=== PATIENT | female | born 1960 | race Caucasian/White ===

== ENCOUNTER → 2016-05-20 | Outpatient (CLI) | payer OTHER ==
--- NOTE | 2016-05-20 10:19 | MM ---
Reason for exam: screening (asymptomatic). Last mammogram was performed 1 year and 6 months ago. History: Patient is postmenopausal, has history of other cancer at age 49, and is nulliparous. Family history of breast cancer in mother at age 65. Benign US breast aspiration single RT of the right breast, November 05, 2013. Physical Findings: A clinical breast exam by your physician is recommended on an annual basis and results should be correlated with mammographic findings. MG Screening Mammo w CAD Bilateral CC and MLO view(s) were taken. Prior study comparison: November 06, 2014, bilateral MG screening mammo w CAD. May 06, 2014, right breast MG diagnostic mammo RT w CAD. The breast tissue is heterogeneously dense. This may lower the sensitivity of mammography. Previous ultrasound biopsy in the right breast. No significant changes when compared with prior studies. ASSESSMENT: Benign, BI-RAD 2 RECOMMENDATION: Routine screening mammogram of both breasts in 1 year.
== END | disposition home or self-care (01) ==
LOC: RADMAMWWP 07:34
PROVIDERS: ATTEND Family Medicine
DX: Z12.31 Encounter for screening mammogram for malignant neoplasm of breast (principal)

== ENCOUNTER → 2017-03-17 | Outpatient (CLI) | payer OTHER ==
--- NOTE | 2017-03-17 09:27 | XR ---
EXAM TYPE: LUMBAR SPINE X RAY SERIES COMPARISON: NONE HISTORY: Back pain TECHNIQUE: 3 views views are submitted. FINDINGS: Alignment is anatomic. The pedicles are intact. The transverse processes are intact. There is no s pondylolisthesis. Hypertrophic changes are noted anteriorly and there is facet arthropathy particula rly at L4-5 and L5-S1. Disc spaces are preserved. IMPRESSION: 1. Multilevel facet arthropathy and hypertrophic changes.
== END | disposition home or self-care (01) ==
LOC: RADXRMAIN 08:40
PROVIDERS: ATTEND Physician Assistant
DX: M46.97 Unspecified inflammatory spondylopathy, lumbosacral region (principal)
CPT/HCPCS: 72100

== ENCOUNTER → 2018-05-31 | Outpatient (CLI) | payer OTHER ==
[2018-05-31 08:02] LABS: Basophils # (A) 0.1 k/uL (0-0.2); Basophils % (A) 1 %; Eosinophils # (A) 0.3 k/uL (0-0.7); Eosinophils % (A) 4 %; HGB 13.7 gm/dL (11.4-16.0); Lymphocytes # (A) 1.8 k/uL (1.0-4.8); Lymphocytes % (A) 25 %; MCH 28.1 pg (25.0-35.0); MCHC 31.8 g/dL (31.0-37.0); MCV 88.3 fL (80.0-100.0); Mean Platelet Volume 7.1; Monocytes # (A) 0.4 k/uL (0-1.0); Monocytes % (A) 6 %; Neutrophils # (A) 4.6 k/uL (1.3-7.7); Neutrophils % (A) 63 %; Platelet Count 300 k/uL (150-450); RBC 4.86 m/uL (3.80-5.40); RDW 13.7 % (11.5-15.5); WBC 7.2 k/uL (3.8-10.6)
[2018-05-31 08:10] LABS: ALT 46 U/L (9-52); AST 31 U/L (14-36); Albumin 4.2 g/dL (3.5-5.0); Alkaline Phosphatase 78 U/L (38-126); Anion Gap 5 mmol/L; Blood Urea Nitrogen 16 mg/dL (7-17); Calcium 9.3 mg/dL (8.4-10.2); Carbon Dioxide 27 mmol/L (22-30); Chloride 106 mmol/L (98-107); Cholesterol 233 mg/dL (<200); Glucose 92 mg/dL (74-99); HDL Cholesterol 76 mg/dL (40-60); LDL Cholesterol,Calculated 143 mg/dL (0-99); Potassium 4.3 mmol/L (3.5-5.1); Sodium 138 mmol/L (137-145); Total Bilirubin 0.5 mg/dL (0.2-1.3); Total Protein 7.1 g/dL (6.3-8.2); Triglycerides 69 mg/dL (<150)
--- NOTE | 2018-06-01 11:15 | MM ---
Reason for exam: screening (asymptomatic). Last mammogram was performed 2 years ago. History: Patient is postmenopausal, has history of other cancer at age 49, and is nulliparous. Family history of breast cancer in mother at age 65. Benign US breast aspiration single RT of the right breast, November 05, 2013. Physical Findings: A clinical breast exam by your physician is recommended on an annual basis and results should be correlated with mammographic findings. MG Screening Mammo w CAD Bilateral CC and MLO view(s) were taken. Prior study comparison: May 20, 2016, bilateral MG screening mammo w CAD. November 06, 2014, bilateral MG screening mammo w CAD. The breast tissue is heterogeneously dense. This may lower the sensitivity of mammography. No significant changes when compared with prior studies. ASSESSMENT: Benign, BI-RAD 2 RECOMMENDATION: Routine screening mammogram of both breasts in 1 year.
== END | disposition home or self-care (01) ==
LOC: RADMAMWWP 07:15
PROVIDERS: ATTEND Family Medicine
DX: Z12.31 Encounter for screening mammogram for malignant neoplasm of breast (principal); Z00.00 Encounter for general adult medical examination without abnormal findings
CPT/HCPCS: 36415; 77067; 80053; 80061; 85025

== ENCOUNTER 2021-08-17 06:15 | Day surgery (SDC) | payer BC ==
[2021-08-13 15:22] VITALS: BMI 32.5
[~2021-08-17 06:15] MED LIST: LACTATED RINGERS 1,000 ML IV SCH; LIDOCAINE 1% (10MG/ML) FOR IV START INTRADERMA PRN
[2021-08-17 07:01] VITALS: TEMP 97.1
[2021-08-17] MEDS ORDERED: PROPOFOL 10 MG/ML 20 ML VIAL IV ONE (07:25)
[2021-08-17] MEDS ORDERED: LIDOCAINE 2% INJ 20 MG/ML (2 ML VIAL) ONE (07:25)
--- NOTE | 2021-08-17 07:50 | P.PCN ---
Date of Procedure: 08/17/21 Procedure(s) Performed: Brief history: Patient is a pleasant 60-year-old white female scheduled for an elective upper endoscopy as well as colonoscopy as a part of evaluation of GERD and screening for colon cancer. She is been having intermittent dysphagia to solids for the last 1 month duration. Procedure performed: Esophagogastroduodenoscopy with biopsy Colonoscopy with biopsy Preoperative diagnosis: GERD/intermittent dysphagia to solids Screening for colon cancer Anesthesia: MAC Procedure: After informed consent was obtained from the patient was brought into the endoscopy unit and IV sedation was administered by anesthesia under continuous monitoring. Initially upper endoscopy was done. The Olympus GF 160 video endoscope was inserted inserted into the mouth and esophagus intubated without any difficulty and was gradually advanced into the stomach and duodenum and carefully examined. The bulb and second part of the duodenum appeared normal. The scope was then withdrawn into the stomach adequately insufflated with air and upon careful examination the antrum had scattered erosions consistent with gastritis and biopsies were done from this area. The body, cardia and fundus appeared normal. The scope was then withdrawn into the esophagus. The GE junction was located at 40 cm to the incisors. It appeared regular with no erythema erosions or ulcerations. Rest of the esophagus appeared normal. Patient tolerated the procedure well. At this time the patient continued to remain sedation. Initial digital rectal examination was normal. Olympus CF 160 video colonoscope was then inserted into the rectum and gradually advanced to the cecum without any difficulty. Careful examination was performed as the scope was gradually being withdrawn. The prep was excellent. The cecum, ascending colon, transverse colon, descending colon, appeared normal. In the sigmoid colon there was a 3 mm polyp removed by cold biopsy. Rest of the sigmoid colon and rectum appeared normal. Retroflexion was performed in the rectum and no lesions were noted. Patient tolerated the proced ure well. Impression: 1. Upper endoscopy revealed esophagitis with linear ulcerations and erosions of the distal esophagus consistent with LA grade D reflux esophagitis, moderate size hiatal hernia and mild antral gastritis 2. Colonoscopy revealed a 3 mm sessile; sigmoid polyp status post cold biopsy Recommendations: Findings of this examination were discussed with the patient as well as her family. She will be started on omeprazole 20 mg twice daily and was briefly educated about antireflux measures. Advised to follow with the biopsy results and if the biopsy the colon polyp reveals adenoma she can have a repeat colonoscopy in 5 years.
[2021-08-17 08:08] VITALS: BP 130/84; PULSE 62; RESP 16
== END 2021-08-17 08:22 | disposition home or self-care (01) ==
LOC: ORWHC2ENDO 06:15
PROVIDERS: ATTEND Internal Medicine Gastroenterology
DX: Z12.11 Encounter for screening for malignant neoplasm of colon (principal); D12.5 Benign neoplasm of sigmoid colon; K29.50 Unspecified chronic gastritis without bleeding; K21.00 Gastro-esophageal reflux disease with esophagitis, without bleeding; K22.10 Ulcer of esophagus without bleeding; K44.9 Diaphragmatic hernia without obstruction or gangrene; E89.0 Postprocedural hypothyroidism; Z79.890 Hormone replacement therapy; Z79.899 Other long term (current) drug therapy; Z98.890 Other specified postprocedural states; Z88.8 Allergy status to other drugs, medicaments and biological substances; Z88.3 Allergy status to other anti-infective agents; Z91.011 Allergy to milk products
CPT/HCPCS: 88305; 45380; 43239; J2704; J2001

== ENCOUNTER → 2024-01-11 | Outpatient (CLI) | payer BC ==
--- NOTE | 2024-01-12 22:46 | MM ---
Reason for Exam: Screening (asymptomatic). Last mammogram was performed 5 year(s) and 7 month(s) ago. Patient History: Menarche at age 13. Patient has no children. Right ovary removed at age 52. Hysterectomy at age 52. Postmenopausal. 11/05/2013, Benign Cyst Aspiration on the right side. Mother had breast cancer, age 65. Risk Values: Sarah 5 year model risk: 3.1%. NCI Lifetime model risk: 12.8%. Prior Study Comparison: 11/06/2014 Bilateral Screening Mammogram, [facility]. 05/20/2016 Bilateral Screening Mammogram, [facility]. 05/31/2018 Bilateral Screening Mammogram, [facility]. Tissue Density: The breasts are heterogeneously dense, which may obscure small masses. Findings: Analyzed By CAD. The pattern is symmetrical. Pattern is Stable. Core marker right breast. There are a few regional punctate calcifications. No cluster of 5 microcalcifications is evident. No suspicious groups of microcalcifications, spiculated or lobular masses, architectural distortion or other secondary signs of malignancy are mammographically apparent. Overall Assessment: Benign, BI-RAD 2 Management: Screening Mammogram of both breasts in 1 year. A negative mammogram report should not preclude additional follow up of suspicious palpable abnormalities. Patient should continue monthly self breast exam. A clinical breast exam by your physician is recommended on an annual basis and results should be correlated with mammographic findings. Note on Sarah scores and lifetime risk: 1. A Sarah score greater than 3% is considered moderate risk. If this is the case, consider specialist referral to assess eligibility for a risk reducing agent. 2. If overall lifetime risk for the development of breast cancer is 20% or higher, the patient may qualify for future screening with alternating mammogram and breast MRI. [facility], , 01/12/2024 10:43 PM. Electronically signed and approved by: Bigg Grier D.O. Radiologis
== END | disposition home or self-care (01) ==
LOC: RADMAMWWP 16:13
PROVIDERS: ATTEND Family Medicine
DX: Z12.31 Encounter for screening mammogram for malignant neoplasm of breast (principal); R92.333 Mammographic heterogeneous density, bilateral breasts; Z78.0 Asymptomatic menopausal state; Z80.3 Family history of malignant neoplasm of breast; Z90.722 Acquired absence of ovaries, bilateral
CPT/HCPCS: 77067

== ENCOUNTER → 2024-04-26 | Outpatient (CLI) | payer BC ==
[2024-04-26 11:56] VITALS: BP 121/76; PULSE 73; RESP 17; TEMP 97.7
--- NOTE | 2024-04-26 12:15 | P.GSCN ---
History of Present Illness Consult date: 04/26/24 Reason for Consult: high risk breast cancer Requesting physician: Juan Carlos Vazquez History of present illness: Aminata is a 63 year old female seen in consultation for Dr. Vazquez. She had a bilateral mammogram [facility] 2 01-11-24, personally interpreted. She is here to establish follow-up as she has had thyroid cancer and her mother had breast cancer. She does not feel any lumps masses or nodules of concern in either breast. She is not complaining of any nipple discharge or skin changes. She has not had any recent trauma or infection in the breast. She has had several needle biopsies in the remote past they have all been benign. She has not had any open surgery on her breast. 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 Vazquez 10-03-23 reviewed Review of Systems - Constitutional Denies fever, Denies weight loss - EENT Eyes: denies blurred vision Ears: deny: decreased hearing, tinnitus Ears, nose, mouth and throat: Denies dysphagia - Breasts bilateral: as per HPI - Cardiovascular Denies chest pain, Denies shortness of breath - Respiratory Denies cough, Denies 7 - Gastrointestinal Reports as per HPI - Genitourinary Genitourinary: Denies dysuria, Denies hematuria Menstruation: Reports post hysterectomy - Musculoskeletal Reports as per HPI - Integumentary Denies rash, Denies unusual bruising - Neurological Reports headaches, Denies syncope - Psychiatric Reports anxiety, Reports depression - Endocrine Reports as per HPI - Hematologic/Lymphatic Denies easy bleeding, Denies easy bruising - Allergic/Immunologic Reports as per HPI, Reports seasonal allergies Past Medical History Past Medical History: Cancer, Diabetes Mellitus, GERD/Reflux, Hyperlipidemia, Thyroid Disorder Additional Past Medical History / Comment(s): migraines, hiatal hernia, food and water "sticks", "prediabetic"-watches dien, thyroid cancer, vertigo History of Any Multi-Drug Resistant Organisms: None Reported Past Surgical History: Hysterectomy Additional Past Surgical History / Comment(s): partial thyroidectomy x 2, Past Anesthesia/Blood Transfusion Reactions: Motion Sickness Additional Past Anesthesia/Blood Transfusion Reaction / Comm: vertigo Smoking Status: Never smoker - Past Family History Mother Family Medical History: Cancer Additional Family Medical History / Comment(s): breast Medications and Allergies Home Medications Medication Instructions Recorded Confirmed Type Tums(Unknown Dose) 1 tab PO DIRECTED PRN 10/03/13 08/13/21 History ALPRAZolam [Xanax] 0.25 mg PO Q8HR PRN 08/13/21 08/13/21 History Aspirin/Acetaminophen/Caffeine 1 each PO DIRECTED PRN 08/13/21 08/13/21 History [Excedrin Migraine Caplet] Citalopram Hydrobromide [CeleXA] 20 mg PO HS 08/13/21 08/13/21 History Ergocalciferol [Vitamin D2 (1250 1,250 mcg PO FR 08/13/21 08/13/21 History Mcg = 50216 Iu)] Levothyroxine Sodium [Synthroid] 125 mcg PO DAILY 08/13/21 08/13/21 History Multivitamins, Thera [Multivitamin 1 tab PO DAILY 08/13/21 08/13/21 History (formulary)] Allergies Allergy/AdvReac Type Severity Reaction Status Date / Time bacitracin Allergy Rash/Hives Verified 08/17/21 06:43 Milk Containing Products Allergy Nausea & Verified 08/17/21 06:43 (Dairy) Vomiting & [Dairy] Diarrhea gluten AdvReac Nausea & Verified 08/17/21 06:43 Vomiting & Diarrhea lactose AdvReac Nausea & Verified 08/17/21 06:43 Vomiting & Diarrhea ONE A DAY VITAMINS Allergy Unknown Rash/Hives Uncoded 08/17/21 06:43 VICKS FORMULA 44 Allergy Unknown Rash/Hives Uncoded 08/17/21 06:43 Surgical - Exam - General no distress - Eyes normal ocular movement - Neck trachea midline - Respiratory normal respiratory effort, clear to auscultation - Cardiovascular Rhythm: regular Heart Sounds: normal: S1, S2 - Abdomen Abdomen: soft, non tender, no guarding, no rigid, no rebound - Integumentary normal turgor - Musculoskeletal normal gait - Psychiatric oriented to time, oriented to person, oriented to place, speech is normal, memory intact Breast Exam: BRA: 38B Inspection: Bilateral grade 2 ptosis Palpation: Right breast: Multi positional exam fibrocystic changes, no dominant masses or nodules of concern Right axilla: No adenopathy of concern Left breast: Multi positional exam fibrocystic changes no dominant masses or nodules of concern Left axilla: No adenopathy of concern Results Bilateral mammogram personally reviewed and interpreted BI-RADS 2 this was from 01-11-2024 Assessment and Plan Assessment: Impression: Increased risk breast cancer Positive family history of breast cancer Personal history of thyroid cancer Bilateral mammogram 01-11-2024 BI-RADS 2 5-year risk of breast cancer 3.1%, NCI lifetime risk 12.8% Plan: We have discussed genetic testing she is going to consider meeting with a genetic counselor to determine if she would like to have genetic testing performed We have discussed chemoprophylaxis and at this time she is going to wait on that and be followed closely Close clinical surveillance with repeat bilateral mammogram in December 2024 with examination at that time Patient will follow-up sooner any questions or concerns At this time there is nothing radiographically or on physical exam which would warrant interventional biopsy CC: Dr. Vazquez
== END ==
LOC: WWCWWP 10:40
PROVIDERS: ATTEND Surgery
DX: C50.919 Malignant neoplasm of unspecified site of unspecified female breast (principal); Z80.3 Family history of malignant neoplasm of breast; Z85.850 Personal history of malignant neoplasm of thyroid; Z88.1 Allergy status to other antibiotic agents; Z91.011 Allergy to milk products; Z88.8 Allergy status to other drugs, medicaments and biological substances; Z91.018 Allergy to other foods